=== PATIENT | female | born 1960 | race Caucasian/White ===

== ENCOUNTER 2017-03-01 14:25 | Emergency (ER) | payer OTHER ==
[2017-03-01 14:30] VITALS: RESP 16; TEMP 98.1; O2SAT 97
--- NOTE | 2017-03-01 14:57 | EDPHY ---
H & P Stated Complaint: hit head tubing on [place] Time Seen by Provider: 03/01/17 14:56 HPI/ROS: CHIEF COMPLAINT: Headache, neck pain HISTORY OF PRESENT ILLNESS: The patient presents to the ED with complaints of headache and neck pain after she fell off a in her to while tubing in the [place]. The patient did not strike her head or lose consciousness. She presents to the ED complaining of moderate to severe occipital pain with headache. The patient also complains of cervical spine pain. The patient denies any numbness or weakness in her upper extremities. She denies any lower extremity complaints. She has no complaints of back pain, abdominal pain, chest pain or difficulty breathing. The patient is not anticoagulated. REVIEW OF SYSTEMS: A comprehensive 10 point review of systems is otherwise negative aside from elements mentioned in the history of present illness. Source: Patient - Personal History Current Tetanus/Diphtheria Vaccine: Yes Current Tetanus Diphtheria and Acellular Pertussis (TDAP): Yes - Medical/Surgical History Hx Asthma: No Hx Chronic Respiratory Disease: No Hx Diabetes: No Hx Cardiac Disease: No Hx Renal Disease: No Hx Cirrhosis: No Hx Alcoholism: No Hx HIV/AIDS: No Hx Splenectomy or Spleen Trauma: No - Social History Smoking Status: Never smoked - Physical Exam Exam: General Appearance: Alert, no distress Head: Occipital scalp tenderness to palpation, occipital hematoma Eyes: Pupils equal, round, reactive ENT, Mouth: No hemotympanum, no oral trauma Neck: Midline cervical spine tenderness noted Respiratory: No chest wall tender, subcutaneous air, lungs clear bilaterally Cardiovascular: Regular rate and rhythm Abdomen: Abdomen is soft and nontender, pelvis stable Skin: No lacerations, No abrasion Back: No midline T/L/S pain Extremities: Nontender, full range of motion Neurological: A&Ox3, normal motor function, normal sensory exam Constitutional: Initial Vital Signs Temperature (C) 36.7 C 03/01/17 14:28 Heart Rate 60 03/01/17 14:28 Respiratory Rate 16 03/01/17 14:28 Blood Pressure 145/82 H 03/01/17 14:28 O2 Sat (%) 97 03/01/17 14:28 O2 Delivery Mode Room Air Allergies/Adverse Reactions: No Known Allergies Allergy (Unverified 03/01/17 14:30) Medical Decision Making - Diagnostics Imaging Results: CT head without contrast: Images reviewed by myself and discussed with radiologist Dr. Kevin Khan, negative for intracranial hemorrhage. CT cervical spine without contrast: Images reviewed by myself and discussed with radiologist Dr. Khan, negative for acute spinal fracture or injury. ED Course/Re-evaluation: The patient presents to the ED with complaints of moderate to severe headache and neck pain following a moderate mechanism accident. The patient will be taken for a CT scan of the head and cervical spine based upon her presentation. The patient was taken for CT scan of the head and cervical spine which fortunately demonstrated no evidence of an acute fracture. The patient is neurologically intact. She will be discharged home with customary aftercare instructions for a scalp contusion and cervical spine strain. The patient is discharged home with concussion aftercare instruction booklet and given the contact number of our concussion specialist for any persistent neurologic symptoms. Differential Diagnosis: Differential diagnosis considered includes intracranial hemorrhage, concussion, cervical spine fracture, cervical spine strain Departure - Departure Disposition: Home, Routine, Self-Care Clinical Impression: Contusion of scalp, Cervical strain, acute Condition: Good Instructions: Cervical Strain (ED) Additional Instructions: 1. Take Ibuprofen or Motrin 600 mg by mouth three times a day. 2. Please return to the emergency department for markedly worsening symptoms or other concerns. 3. Your CT scan demonstrates no evidence of a fracture, intracranial bleeding or other concerns. 4. With your headache, you may have a mild concussion, please review the concussion aftercare instructions you have been given. Please contact the concussion specialist you have been referred to for any neurologic symptoms which persists past 5-[address] Huff is our concussion specialist. Referrals: NOAM BRYAN [Other] - As per Instructions Herlinda Huff MD [Medical Doctor] - As per Instructions
[2017-03-01 16:08] VITALS: BP 123/81; PULSE 72
== END 2017-03-01 16:00 | disposition home or self-care (01) ==
DX: S16.1XXA Strain of muscle, fascia and tendon at neck level, initial encounter (principal); S00.03XA Contusion of scalp, initial encounter; W18.39XA Other fall on same level, initial encounter; Y92.828 Other wilderness area as the place of occurrence of the external cause; Y93.16 Activity, rowing, canoeing, kayaking, rafting and tubing